=== PATIENT | female | born 1970 | race Caucasian/White ===

== ENCOUNTER 2017-11-27 06:13 | Day surgery (SDC) | payer OTHER ==
[2017-11-27] MEDS ORDERED: LIDOCAINE 4% SOLUTION 50 ML BTL (08:16)
[2017-11-27] MEDS ORDERED: MIDAZOLAM 1 MG/ML 2 ML INJ (08:42)
[2017-11-27] MEDS ORDERED: FENTAnyl 50 MCG/ML VIAL (08:42)
== END 2017-11-27 11:20 | disposition home or self-care (01) ==
LOC: GIL 06:13
DX: K29.50 Unspecified chronic gastritis without bleeding (principal); K31.7 Polyp of stomach and duodenum
CPT/HCPCS: 43239; 88305; 88312; 88313